=== PATIENT | male | born 1970 | race Asian ===

== ENCOUNTER 2022-08-01 21:03 | Emergency (ER) | payer BC ==
[~2022-08-01] VITALS: Ht 162.6 cm; Wt 67.3 kg
[~2022-08-01 21:03] MED LIST: CEPH-585 PO
[2022-08-01 21:18] VITALS: BP 134/85
[2022-08-01] MEDS ORDERED: bacitracin 15gm ointment TP ONE (22:40)
[2022-08-01] MEDS ORDERED: ondansetron 4mg rapidly disintigrating tab PO ONE (22:40)
[2022-08-01] MEDS ORDERED: LIDOCAINE 2%/EPI 1:100,000 inj. Multi-dose 20 ML VIAL IJ ONE (22:40)
[2022-08-01] MEDS ORDERED: sulfamethoxazole/trimethoprim DS (800/160mg) tablet PO ONE (22:40)
[2022-08-01] MEDS ORDERED: SULF1TAB49 PO (23:14)
== END 2022-08-01 23:40 | disposition home or self-care (01) ==
LOC: ER 21:04
DX: L02.214 Cutaneous abscess of groin (principal); Z79.899 Other long term (current) drug therapy
CPT/HCPCS: 10060; 99284; A6212; A6449

== ENCOUNTER 2022-12-23 14:56 | Emergency (ER) | payer OTHER ==
[~2022-12-23] VITALS: Ht 162.6 cm; Wt 65.9 kg
[2022-12-23 15:09] VITALS: BP 134/95; PULSE 85; RESP 13; O2SAT 99
[2022-12-23] MEDS ORDERED: CEPH-585 PO (16:05)
[2022-12-23] MEDS ORDERED: cephalexin 250mg capsule PO ONE (16:05)
[2022-12-23] MEDS ORDERED: bacitracin 15gm ointment TP ONE (16:05)
== END 2022-12-23 16:25 | disposition home or self-care (01) ==
LOC: ER 14:56
DX: T22.211A Burn of second degree of right forearm, initial encounter (principal); Z87.891 Personal history of nicotine dependence; Z79.2 Long term (current) use of antibiotics; X08.8XXA Exposure to other specified smoke, fire and flames, initial encounter; Y93.89 Activity, other specified; Y92.89 Other specified places as the place of occurrence of the external cause; Y99.8 Other external cause status
CPT/HCPCS: 16000; 99283

== ENCOUNTER 2023-01-11 06:34 | Emergency (ER) | payer BC, OTHER ==
[~2023-01-11] VITALS: Ht 162.6 cm; Wt 75.0 kg
[2023-01-11 06:40] VITALS: BP 127/97; PULSE 52; RESP 18; TEMP 97.5; O2SAT 97
[2023-01-11] MEDS ORDERED: proparacaine 0.5% ophthalmic drops 15ml EACHEYE ONE (07:05)
[2023-01-11] MEDS ORDERED: ERYT1OIN6 EACHEYE (07:28)
[2023-01-11] MEDS ORDERED: TRAM1TAB7 PO (07:28)
[2023-01-11] MEDS ORDERED: IBUP-1984 PO (07:28)
== END 2023-01-11 07:44 | disposition home or self-care (01) ==
LOC: ER 06:35
DX: T15.81XA Foreign body in other and multiple parts of external eye, right eye, initial encounter (principal); H11.31 Conjunctival hemorrhage, right eye; H57.11 Ocular pain, right eye; Z79.2 Long term (current) use of antibiotics; Z91.041 Radiographic dye allergy status; Z79.1 Long term (current) use of non-steroidal anti-inflammatories (NSAID)
CPT/HCPCS: 99284

== ENCOUNTER 2023-03-24 15:32 | Emergency (ER) | payer OTHER ==
[~2023-03-24] VITALS: Ht 165.1 cm; Wt 66.8 kg
[2023-03-24 15:59] VITALS: BP 98/83; PULSE 73; RESP 18; TEMP 97.1; O2SAT 98
[2023-03-24] MEDS ORDERED: diphenhydrAMINE 50 mg/ml inj IM ONE (16:15)
[2023-03-24] MEDS ORDERED: methylPREDNISolone sod succ 125mg/2ml vial IV ONE (16:15)
== END 2023-03-24 17:53 | disposition home or self-care (01) ==
LOC: ER 15:32
DX: T80.62XA Other serum reaction due to vaccination, initial encounter (principal); R20.0 Anesthesia of skin; M79.89 Other specified soft tissue disorders; Z79.2 Long term (current) use of antibiotics
CPT/HCPCS: 99281

== ENCOUNTER 2023-07-09 06:30 | Emergency (ER) | payer BC, OTHER ==
[~2023-07-09] VITALS: Ht 165.1 cm; Wt 71.5 kg
[2023-07-09 06:35] VITALS: TEMP 98.3
[2023-07-09] MEDS ORDERED: ketorolac trometh inj. 60 MG/2 ML VIAL IM ONE (06:55)
[2023-07-09] MEDS: ketorolac tromethamine 15mg/ml inj. IM ONE (07:20)
[2023-07-09 07:46] LABS: STREP A SCREEN NEGATIVE (Neg)
[2023-07-09 08:05] VITALS: BP 117/98; PULSE 76; O2SAT 100
[2023-07-09 08:07] VITALS: RESP 14
[2023-07-09] MEDS ORDERED: OMEP40CA21 PO (08:09)
[2023-07-09] MEDS: dexamethasone sod phosphate 10mg/ml inj PO STA (08:18)
[2023-07-10] MEDS ORDERED: CEPH-585 PO (23:53)
[2023-07-10] MEDS ORDERED: IBUP-1984 PO (23:53)
[2023-07-10] MEDS ORDERED: PRED20TA PO (23:53)
== END 2023-07-09 08:20 | disposition home or self-care (01) ==
LOC: ER 06:30
DX: J02.9 Acute pharyngitis, unspecified (principal); Z79.2 Long term (current) use of antibiotics; Z79.899 Other long term (current) drug therapy
CPT/HCPCS: 87081; 87880; 96372; 99283; J1100; J1885

== ENCOUNTER 2023-07-10 22:03 | Emergency (ER) | payer BC ==
[~2023-07-10] VITALS: Ht 162.6 cm; Wt 71.0 kg
[~2023-07-10 22:03] MED LIST changes: +OMEP40CA21 PO
[2023-07-10 22:25] VITALS: TEMP 98.6
[2023-07-10] MEDS ORDERED: CefTRIAXone 250MG inj IV ONE (22:35)
[2023-07-10 23:20] LABS: BASOPHILS % (AUTO) 0.2 % (0-1); EOSINOPHILS % (AUTO) 0.2 % (0-6); HEMATOCRIT 45.8 % (42.0-52.0); HEMOGLOBIN 15.4 g/dl (14.0-17.9); LYMPHOCYTES # (AUTO) 1.8 X10'3 (1.1-4.8); LYMPHOCYTES % (AUTO) 15.8 % (21-51); MEAN CORPUSCULAR HEMOGLOBIN 32.1 PG (27.0-31.0); MEAN CORPUSCULAR HGB CONC 33.7 g/dL (33.0-36.5); MEAN CORPUSCULAR VOLUME 95.3 FL (78-98); MEAN PLATELET VOLUME 9.1 FL (7.4-10.4); MONOCYTES # (AUTO) 1.2 X10'3 (0-0.9); MONOCYTES % (AUTO) 10.6 % (2-12); NEUTROPHILS # (AUTO) 8.5 X10'3 (1.8-7.7); NEUTROPHILS % (AUTO) 73.2 % (42-75); PLATELET COUNT 125 X10'3 (140-440); RED CELL DISTRIBUTION WIDTH 14.4 % (11.5-14.5); WHITE BLOOD COUNT 11.6 X10'3 (4.5-11.0)
[2023-07-10] MEDS: dexamethasone 4mg/ml inj IV ONE (23:25)
[2023-07-10] MEDS: CefTRIAXone/D5W-Rocephin 1gm 50 ML IV ONE (23:25)
[2023-07-10] MEDS: ibuprofen tablet 400 MG TABLET PO ONE (23:25)
[2023-07-10 23:44] LABS: ALANINE AMINOTRANSFERASE 18 U/L (12-78); ALBUMIN 3.5 G/DL (3.4-5.0); ALBUMIN/GLOBULIN RATIO 0.8 (1.1-1.5); ALKALINE PHOSPHATASE 65 IU/L (46-116); ANION GAP 7 (8-16); ASPARTATE AMINO TRANSFERASE 21 U/L (10-37); BILIRUBIN,TOTAL 0.4 MG/DL (0.1-1.0); BLOOD UREA NITROGEN 17 MG/DL (7-18); BUN/CREATININE RATIO 14.2 (10.0-20.0); CALCIUM 8.5 MG/DL (8.5-10.1); CHLORIDE 106 MMOL/L (99-107); GLUCOSE 132 MG/DL (70-104); POTASSIUM 4.1 MMOL/L (3.5-5.1); SODIUM 142 MMOL/L (135-145); TOTAL CARBON DIOXIDE 28.7 MMOL/L (24-32); TOTAL PROTEIN 7.8 G/DL (6.4-8.2); eCRCL 60 ML/MIN; eGFR 64 ML/MIN
[2023-07-10] MEDS ORDERED: PRED20TA PO (23:53)
[2023-07-10] MEDS ORDERED: IBUP-1984 PO (23:53)
[2023-07-10] MEDS ORDERED: CEPH-585 PO (23:53)
[2023-07-11 00:25] VITALS: BP 109/83; PULSE 74; RESP 20; O2SAT 96
[2023-07-11] MEDS ORDERED: dexamethasone inj 6 MG in dextrose 5%-water 100 ML IV SCH (08:00)
== END 2023-07-11 00:26 | disposition home or self-care (01) ==
LOC: ER 22:04
DX: J03.90 Acute tonsillitis, unspecified (principal); H92.01 Otalgia, right ear; Z79.2 Long term (current) use of antibiotics; Z79.899 Other long term (current) drug therapy
CPT/HCPCS: 36415; 80053; 85025; 96365; 96375; 99284; J0696; J1100

== ENCOUNTER → 2024-10-26 | Outpatient (CLI) | payer BC ==
[~2024-10-26] MED LIST changes: -CEPH-585 PO; -OMEP40CA21 PO; +iohexol 300mg/ml 100ml inj. ONE
--- NOTE | 2024-10-26 17:37 | RADIOLOGY REPORT ---
Indication: CALCULUS OF KIDNEY Technique: CT axial images of the abdomen and pelvis are obtained with intravenous contrast. Coronal and sagittal reformats were obtained. Radiation Dose Information: CTDI volume is 10 mGy. Dose-length product is 541 mGy*cm Comparison: None FINDINGS: Lung bases demonstrate atelectasis Adrenal glands, spleen, pancreas unremarkable. Subcentimeter hepatic hypodensities, too small to tomy acterize statistically likely representing cysts. No CT evidence for cholelithiasis. 4 mm nonobstructing left renal calculus. There is mild to moderate left hydroureteronephrosis seconda ry to a mid to distal left ureteral calculus measuring 5 mm. Right kidney demonstrates no hydronephrosis, nephrolithiasis. Stomach is partially distended. Small bowel loops are demonstrating fecal like contents. Colonic diverticula. Moderate volume stool within the colon. No secondary signs for appendicitis. Abdominal aorta normal in caliber. Atherosclerotic disease. Bladder distended. No free pelvic fluid. No inguinal lymphadenopathy. Moderate bilateral sacroiliac degenerative joint disease. [id number] thoracolumbar degenerative disc disease. IMPRESSION: 1. [id number] left hydroureteronephrosis secondary to a distal left ureteral calculus measuring 5 mm. 2. Nonobstructing left renal calculus measuring 4 mm. 3. Fecal like contents within the small bowel which can be seen with ileus, hypomotility, bowel obstr uction. 4. Other findings as described.
== END | disposition home or self-care (01) ==
LOC: RAD 15:36
PROVIDERS: ATTEND Family Medicine
DX: N13.2 Hydronephrosis with renal and ureteral calculous obstruction (principal); M46.1 Sacroiliitis, not elsewhere classified; I25.10 Atherosclerotic heart disease of native coronary artery without angina pectoris; M51.34 Other intervertebral disc degeneration, thoracic region
CPT/HCPCS: 74177; Q9967

== ENCOUNTER 2024-12-28 07:05 | Outpatient (CLI) | payer BC ==
--- NOTE | 2024-12-28 08:31 | RADIOLOGY REPORT ---
Date: 12/28/2024 07:22 AM Examination: DI ABDOMEN,SINGLE VIEW(KUB) History: HYDRONEPHROSIS W/ RENAL URETERAL CALCULOUS OBSTRUCTION Comparison: CT CT ABDOMEN PELVIS on DOS: 10/26/24 TECHNIQUE: Frontal views of the abdomen was obtained. FINDINGS: Bowel gas pattern is unremarkable. Moderate stool burden. The lung bases are collimated from field of view. No acute osseous abnormality identified. IMPRESSION: Moderate stool burden. Nonobstructive bowel gas pattern.
== END 2024-12-28 23:59 | disposition home or self-care (01) ==
LOC: RAD 07:05
PROVIDERS: ATTEND Urology
DX: N13.2 Hydronephrosis with renal and ureteral calculous obstruction (principal)
CPT/HCPCS: 74018

== ENCOUNTER 2025-01-18 09:22 | Outpatient (CLI) | payer BC ==
--- NOTE | 2025-01-18 10:19 | RADIOLOGY REPORT ---
[facility] INDICATION: Cervicalgia COMPARISON: None TECHNIQUE: 6 views of the cervical spine were obtained. FINDINGS: The cervical vertebral alignment is normal. The predental space is normal. The intervertebral disc spaces are well-maintained. No significant facet arthropathy is noted. No acute fracture, vertebral compression deformity or aggressive osseous lesions. The imaged lung apices are unremarkable. IMPRESSION: No acute fracture.
== END 2025-01-18 23:59 | disposition home or self-care (01) ==
LOC: RAD 09:22
PROVIDERS: ATTEND Family Medicine
DX: M54.2 Cervicalgia (principal); R73.09 Other abnormal glucose
CPT/HCPCS: 36415; 72050; 83036

== ENCOUNTER 2025-01-20 11:33 | Outpatient (CLI) | payer BC ==
--- NOTE | 2025-01-20 14:28 | RADIOLOGY REPORT ---
Indication: R/O KIDNEY STONES Technique: CT axial images of the abdomen and pelvis are obtained without contrast. Coronal and sagit tami reformats were obtained. Radiation Dose Information: CTDI volume is 11 mGy. Dose-length product is 545 mGy*cm Comparison: CT CT ABDOMEN PELVIS on DOS: 10/26/24 FINDINGS: There is limited interpretation of the abdomen and pelvis without administration of intravenous contr ast. Lung bases demonstrate no pleural effusion. Adrenal glands, spleen, pancreas and liver unremarkable in shape. No CT evidence for cholelithiasis. Right kidney demonstrates no hydronephrosis, nephrolithiasis. 4 mm nonobstructing left renal calculus. Moderate gastric distention. Small bowel loops demonstrate fecal like contents. Moderate to large volume stool in the colon. No secondary signs for appendicitis. Abdominal aortic atherosclerotic disease. Bladder partially distended. No free pelvic fluid. No ingui nal lymphadenopathy. Moderate bilateral sacroiliac degenerative joint disease. [id number] thoracolumbar degenerative disc disease. IMPRESSION: Limited evaluation without contrast. Nonobstructing left renal calculus measuring 4 mm. The previously seen distal left ureteral calculus appears to have passed/resolved. Fecal like contents within the small bowel which can be seen with ileus, hypomotility, bowel obstruct ion. Moderate to large volume stool within the colon Gastric distention.
== END 2025-01-20 23:59 | disposition home or self-care (01) ==
LOC: 64 CT 11:33
PROVIDERS: ATTEND Family Medicine
DX: N20.9 Urinary calculus, unspecified (principal); Z87.442 Personal history of urinary calculi; I70.0 Atherosclerosis of aorta
CPT/HCPCS: 74176